=== PATIENT | male | born 1965 | race Caucasian/White ===

== ENCOUNTER 2020-09-06 08:19 | Emergency (ER) | payer OTHER ==
[2020-09-06 08:40] VITALS: BP 121/70; PULSE 62; TEMP 98.2; BMI 23.2
[2020-09-06] MEDS ORDERED: SODIUM CHLORIDE 1,000 ML IV STA ×2 (09:30→10:44)
[2020-09-06] MEDS ORDERED: KETOROLAC TROMETHAMINE 30 MG/1 ML VIAL IVPUSH STA (09:30)
[2020-09-06] MEDS ORDERED: ONDANSETRON 4 MG/2 ML VIAL IVPUSH ONE (09:30)
[2020-09-06] MEDS ORDERED: KETOROLAC TROMETHAMINE 30 MG/1 ML VIAL ONE (09:56)
[2020-09-06] MEDS ORDERED: ONDANSETRON 4 MG/2 ML VIAL ONE (09:57)
[2020-09-06 10:05] LABS: BASO % 0.2 % (0-2.0); HEMOGLOBIN 13.7 GM/dL (11.7-16.9); MCH 29.6 pg (25.7-33.7); MCHC 33.4 g/dl (32.0-35.9); MEAN CELL VOLUME 88.7 fl (80-96); MEAN PLT VOLUME 9.5 fl (7.5-11.1); MONO % 2.5 % (3.8-10.2); NEUT % 94.3 % (42.8-82.8); PLATELET COUNT 225 K/MM3 (134-434); RBC 4.62 M/mm3 (4.00-5.60); RDW 13.1 % (11.9-15.9); WHITE BLOOD COUNT 18.2 K/mm3 (4.0-10.0)
[2020-09-06 10:23] LABS: CALCIUM 9.2 mg/dL (8.5-10.1)
[2020-09-06 10:24] LABS: ALBUMIN 4.5 g/dl (3.4-5.0); MAGNESIUM 1.9 mg/dL (1.8-2.4)
[2020-09-06 10:27] LABS: CREATININE 1.4 mg/dL (0.55-1.3)
[2020-09-06 10:28] LABS: BILIRUBIN,TOTAL 0.6 mg/dL (0.2-1); TOT PROT 7.5 g/dl (6.4-8.2)
[2020-09-06 12:06] LABS: EPI CELLS 5 /uL (0-25.1); HYALINE CASTS 2 /uL (0-3.1); PH,URINE 5.5 (5.0-8.0); URINE APPEARANCE Error; URINE BACTERIA 76 /uL (0-1359); URINE BILIRUBIN NEGATIVE (NEGATIVE); URINE COLOR YELLOW; URINE GLUCOSE (UA) NEGATIVE (NEGATIVE); URINE KETONE 1+ (NEGATIVE); URINE LEUK ESTERASE NEGATIVE (NEGATIVE); URINE NITRITE NEGATIVE (NEGATIVE); URINE PROTEIN 1+ (NEGATIVE); URINE RBC 29 /uL (0-23.9); URINE UROBILINOGEN 0.2 mg/dL (0.2-1.0); URINE WBC 16 /uL (0-25.8)
[2020-09-06 12:39] LABS: ANISOCYTOSIS 0; HELMET CELLS 0; HOWELL-JOLLY BODIES 0; MACROCYTOSIS 0; OVALOCYTE 0; PLATELET ESTIMATE NORMAL; ROULEAU 0; SICKELED CELLS 0; TARGET CELLS 0; TEAR DROP CELLS 0; TOXIC GRANULATION 0
== END 2020-09-06 14:41 | disposition home or self-care (01) ==
LOC: JER 08:19
PROC: 3E0333Z Introduction of Anti-inflammatory into Peripheral Vein, Percutaneous Approach (ICD-10-PCS; principal; 2020-09-06)
PROC: 3E033GC Introduction of Other Therapeutic Substance into Peripheral Vein, Percutaneous Approach (ICD-10-PCS; 2020-09-06)
PROC: 3E0337Z Introduction of Electrolytic and Water Balance Substance into Peripheral Vein, Percutaneous Approach (ICD-10-PCS; 2020-09-06)
PROC: 3E0337Z Introduction of Electrolytic and Water Balance Substance into Peripheral Vein, Percutaneous Approach (ICD-10-PCS; 2020-09-06)
DX: N23 Unspecified renal colic (principal); N39.0 Urinary tract infection, site not specified
CPT/HCPCS: 36415; 74177-TC; 80053; 81003; 83690; 83735; 85025; 87086; 99285-25; Q9967

== ENCOUNTER 2021-02-28 12:22 | Inpatient (IN) | payer OTHER ==
[2021-02-28] MEDS ORDERED: AMIODARONE HCL INJECTION 150 MG in DEXTROSE 5%-WATER - 100 ML IVPB ONE (12:29)
[2021-02-28] MEDS ORDERED: MAGNESIUM SULF 50% (8.12 MEQ/2 ML-1 GM VIAL) IVPB ONE (12:29)
[2021-02-28] MEDS ORDERED: SODIUM CHLORIDE 0.9% 500 ML INFUS.BAG IV ONE ×2 (12:29)
[2021-02-28 12:46] LABS: BASO % 1.4 % (0-2.0); HEMATOCRIT 38.6 % (35.4-49); LYMPH % 16.8 % (8-40); MCH 28.9 pg (25.7-33.7); MCHC 33.7 g/dl (32.0-35.9); MEAN CELL VOLUME 85.5 fl (80-96); MEAN PLT VOLUME 8.9 fl (7.5-11.1); MONO % 7.2 % (3.8-10.2); NEUT % 74.6 % (42.8-82.8); PLATELET COUNT 142 10^3/uL (134-434); RBC 4.51 M/mm3 (4.00-5.60); RDW 13.4 % (11.9-15.9); WHITE BLOOD COUNT 10.4 K/mm3 (4.0-10.0)
[2021-02-28] MEDS ORDERED: ADENOSINE 6 MG/2 ML VIAL IVPUSH ONE ×3 (12:50→13:14)
[2021-02-28] MEDS ORDERED: AMIODARONE HCL 150 MG/3 ML VIAL ONE (12:50)
[2021-02-28 12:53] LABS: INR 1.09 (0.83-1.09); PROTHROMBIN TIME (PATIENT) 13.1 SEC (9.7-13.0)
[2021-02-28 12:56] LABS: ACTIVATED PTT 29.4 SECONDS (25.2-36.5)
[2021-02-28 13:00] LABS: CHLORIDE 97 mmol/L (98-107); SODIUM 132 mmol/L (136-145)
[2021-02-28 13:03] LABS: CALCIUM 8.5 mg/dL (8.5-10.1)
[2021-02-28 13:04] LABS: ALBUMIN 3.6 g/dl (3.4-5.0); ANION GAP 11 MMOL/L (8-16); CO2 24 mmol/L (21-32); GLUCOSE,RANDOM 151 mg/dL (74-106); MAGNESIUM 2.3 mg/dL (1.8-2.4)
[2021-02-28 13:09] LABS: CREATININE 1.7 mg/dL (0.55-1.3); SGOT/AST 33 U/L (15-37); SGPT/ALT 36 U/L (13-61); TOT PROT 6.6 g/dl (6.4-8.2)
[2021-02-28 13:10] LABS: ALK PHOS 75 U/L (45-117); BLOOD UREA NITROGEN 25.1 mg/dL (7-18)
[2021-02-28] MEDS ORDERED: dilTIAZem HCL 125 MG/25 ML - 25 ML VIAL ONE (13:12)
[2021-02-28] MEDS ORDERED: LACTATED RINGERS SOLUTION 1000 ML INFUS.BAG IV ONE (13:14)
[2021-02-28] MEDS ORDERED: dilTIAZem HCL 50 MG/10 ML - 10 ML VIAL IVPUSH ONE ×2 (13:14→13:29)
[2021-02-28] MEDS ORDERED: AMIODARONE HCL INJECTION 450 MG in DEXTROSE 5%-WATER - 241 ML IVPB ONE (13:19)
[2021-02-28] MEDS ORDERED: DEXTROSE 5% IVPB ONE ×2 (13:28→13:43)
[2021-02-28] MEDS ORDERED: AMIODARONE IN DEXTROSE,ISO-OSM 360 MG/200 ML BAG ONE (13:28)
[2021-02-28] MEDS ORDERED: AMIODARONE HCL IVPB ONE ×2 (13:28→13:43)
[2021-02-28] MEDS ORDERED: WATER IVPB ONE ×2 (13:28→13:43)
[2021-02-28] MEDS ORDERED: DILTIAZEM INJECTION 125 MG in SODIUM CHLORIDE 100 ML IVPB SCH (13:30)
[2021-02-28] MEDS ORDERED: AMIODARONE IN DEXTROSE,ISO-OSM 360 MG/200 ML BAG IVPB ONE (13:48)
[2021-02-28 14:33] LABS: CHOLESTEROL 141 mg/dL (50-200); TRIGLYCERIDES 121 mg/dL (0-150)
[2021-02-28 14:37] LABS: HDL CHOLESTEROL 25 mg/dL (40-60)
[2021-02-28 14:44] LABS: LDL CHOLESTEROL (ONLY SJRH) 83 mg/dL (5-100)
[2021-02-28] MEDS ORDERED: METOPROLOL TARTRATE 25 MG TABLET (FP) ONE (16:47)
[2021-02-28] MEDS: metoPROLOL SUCCINATE 25 MG TAB.SR.24H (FP) PO SCH (16:50)
[2021-02-28 17:54] LABS: LACTIC ACID 2.4 mmol/L (0.4-2.0)
[2021-02-28] MEDS ORDERED: SODIUM CHLORIDE 1,000 ML IV STA (18:50)
[2021-02-28 20:39] VITALS: BMI 25.2
[2021-02-28] MEDS: HEPARIN NA (PORCINE) 5,000 UNITS/ML 1ML VIAL SQ SCH (21:47)
[2021-02-28] MEDS: SODIUM CHLORIDE 1,000 ML IV SCH (21:47)
[2021-03-01 00:11] LABS: SODIUM 134 mmol/L (136-145)
[2021-03-01 00:13] LABS: MAGNESIUM 2.3 mg/dL (1.8-2.4)
[2021-03-01 00:17] LABS: PHOSPHOROUS 2.1 mg/dL (2.5-4.9)
[2021-03-01] MEDS: ACETAMINOPHEN 325 MG TABLET (FP) PO PRN ×2 (03:42→21:54)
[2021-03-01] MEDS: HEPARIN NA (PORCINE) 5,000 UNITS/ML 1ML VIAL SQ SCH ×3 (05:26→21:53)
[2021-03-01 07:28] LABS: MCH 28.2 pg (25.7-33.7); MCHC 32.5 g/dl (32.0-35.9); MEAN CELL VOLUME 86.9 fl (80-96); MEAN PLT VOLUME 9.4 fl (7.5-11.1); PLATELET COUNT 115 10^3/uL (134-434); RBC 4.26 M/mm3 (4.00-5.60); RDW 13.2 % (11.9-15.9); WHITE BLOOD COUNT 9.9 K/mm3 (4.0-10.0)
[2021-03-01 07:42] LABS: CHLORIDE 103 mmol/L (98-107); SODIUM 136 mmol/L (136-145)
[2021-03-01 07:50] LABS: ANION GAP 8 MMOL/L (8-16); BLOOD UREA NITROGEN 18.4 mg/dL (7-18); CO2 25 mmol/L (21-32)
[2021-03-01 07:51] LABS: MAGNESIUM 2.3 mg/dL (1.8-2.4)
[2021-03-01 07:53] LABS: CREATININE 1.1 mg/dL (0.55-1.3); PHOSPHOROUS 2.7 mg/dL (2.5-4.9); SGOT/AST 46 U/L (15-37); SGPT/ALT 33 U/L (13-61); TOT PROT 5.5 g/dl (6.4-8.2)
[2021-03-01 07:54] LABS: ALK PHOS 60 U/L (45-117)
[2021-03-01 07:57] LABS: BILIRUBIN,TOTAL 0.9 mg/dL (0.2-1)
[2021-03-01 07:58] LABS: N-TERMINAL BNP 2813.5 pg/ml (5-125)
[2021-03-01 08:46] LABS: ALBUMIN 2.8 g/dl (3.4-5.0); CALCIUM 7.1 mg/dL (8.5-10.1); GLUCOSE,RANDOM 84 mg/dL (74-106)
[2021-03-01] MEDS: metoPROLOL SUCCINATE 25 MG TAB.SR.24H (FP) PO SCH (10:24)
[2021-03-01 13:54] LABS: ANISOCYTOSIS 1+; MACROCYTOSIS 0; PLATELET ESTIMATE DECREASED
[2021-03-01] MEDS ORDERED: CEFTRIAXONE 1 GM in DEXTROSE 5%-WATER - 50 ML IVPB SCH (17:00)
[2021-03-01] MEDS ORDERED: cefTRIAXone SODIUM 1 GM VIAL ONE (17:13)
[2021-03-01] MEDS ORDERED: DEXTROSE 5%-WATER - 50 ML IVPB ONE (17:13)
[2021-03-01] MEDS: SODIUM CHLORIDE 1,000 ML IV SCH (21:54)
[2021-03-02 06:12] LABS: EPI CELLS 3 /uL (0-25.1); HYALINE CASTS 0 /uL (0-3.1); PH,URINE 5.5 (5.0-8.0); URINE APPEARANCE CLEAR; URINE BACTERIA 4 /uL (0-1359); URINE BILIRUBIN NEGATIVE (NEGATIVE); URINE COLOR YELLOW; URINE GLUCOSE (UA) NEGATIVE (NEGATIVE); URINE KETONE NEGATIVE (NEGATIVE); URINE LEUK ESTERASE NEGATIVE (NEGATIVE); URINE NITRITE NEGATIVE (NEGATIVE); URINE PROTEIN 1+ (NEGATIVE); URINE RBC 33 /uL (0-23.9); URINE WBC 7 /uL (0-25.8)
[2021-03-02] MEDS: HEPARIN NA (PORCINE) 5,000 UNITS/ML 1ML VIAL SQ SCH ×3 (06:30→21:12)
[2021-03-02] MEDS: ACETAMINOPHEN 325 MG TABLET (FP) PO PRN ×2 (06:44→15:18)
[2021-03-02 06:57] LABS: EOS % 0.2 % (0-4.5); HEMATOCRIT 34.4 % (35.4-49); HEMOGLOBIN 11.5 GM/dL (11.7-16.9); LYMPH % 21.5 % (8-40); MCH 28.6 pg (25.7-33.7); MCHC 33.5 g/dl (32.0-35.9); MEAN CELL VOLUME 85.3 fl (80-96); MEAN PLT VOLUME 9.2 fl (7.5-11.1); MONO % 9.7 % (3.8-10.2); NEUT % 67.6 % (42.8-82.8); PLATELET COUNT 122 10^3/uL (134-434); RBC 4.04 M/mm3 (4.00-5.60); RDW 13.3 % (11.9-15.9); WHITE BLOOD COUNT 8.4 K/mm3 (4.0-10.0)
[2021-03-02 07:21] LABS: ALBUMIN 2.6 g/dl (3.4-5.0); BLOOD UREA NITROGEN 13.1 mg/dL (7-18); MAGNESIUM 2.1 mg/dL (1.8-2.4)
[2021-03-02 07:25] LABS: PHOSPHOROUS 1.4 mg/dL (2.5-4.9)
[2021-03-02 07:26] LABS: BILIRUBIN,TOTAL 0.9 mg/dL (0.2-1); TOT PROT 5.2 g/dl (6.4-8.2)
[2021-03-02 07:28] LABS: CREATININE 0.7 mg/dL (0.55-1.3)
[2021-03-02] MEDS ORDERED: DEXTROSE 5%-WATER - 50 ML IVPB ONE (09:22)
[2021-03-02] MEDS ORDERED: cefTRIAXone SODIUM 1 GM VIAL ONE (09:22)
[2021-03-02] MEDS: NAPH,MB-DB/K PH,MBDB POWDER PACKET PO SCH ×3 (09:38→21:12)
[2021-03-02] MEDS: metoPROLOL SUCCINATE 25 MG TAB.SR.24H (FP) PO SCH (09:38)
[2021-03-02] MEDS: CEFTRIAXONE 1 GM in DEXTROSE 5%-WATER - 50 ML IVPB SCH (09:38)
[2021-03-02] MEDS: ASPIRIN 81 MG CHEWABLE TABLETS PO SCH (10:05)
[2021-03-02] MEDS ORDERED: FUROSEMIDE 40 MG/4 ML INJECTABLE VIAL IVPUSH ONE ×2 (11:30)
[2021-03-02] MEDS ORDERED: DOXYCYCLINE HYCLATE 100 MG VIAL ONE ×2 (12:18→20:29)
[2021-03-02] MEDS ORDERED: DEXTROSE 5%-WATER 100 ML IVPB ONE ×2 (12:19→20:29)
[2021-03-02] MEDS: DOXYCYCLINE INJECTION 100 MG in DEXTROSE 5%-WATER 100 ML IVPB SCH ×2 (12:23→21:12)
[2021-03-02 15:49] LABS: HIV INTERPRETATION PRESUMPTIVE POSITIVE (NEGATIVE)
[2021-03-03] MEDS: HEPARIN NA (PORCINE) 5,000 UNITS/ML 1ML VIAL SQ SCH ×3 (05:32→21:18)
[2021-03-03] MEDS: NAPH,MB-DB/K PH,MBDB POWDER PACKET PO SCH ×3 (05:32→21:18)
[2021-03-03 07:58] LABS: BASO % 0.7 % (0-2.0); HEMATOCRIT 41.8 % (35.4-49); HEMOGLOBIN 13.6 GM/dL (11.7-16.9); LYMPH % 45.8 % (8-40); MCH 28.2 pg (25.7-33.7); MCHC 32.6 g/dl (32.0-35.9); MEAN CELL VOLUME 86.5 fl (80-96); MEAN PLT VOLUME 9.1 fl (7.5-11.1); MONO % 10.6 % (3.8-10.2); NEUT % 40.9 % (42.8-82.8); PLATELET COUNT 163 10^3/uL (134-434); RBC 4.83 M/mm3 (4.00-5.60); RDW 13.6 % (11.9-15.9); WHITE BLOOD COUNT 7.1 K/mm3 (4.0-10.0)
[2021-03-03 08:01] LABS: BLOOD UREA NITROGEN 8.6 mg/dL (7-18); MAGNESIUM 2.3 mg/dL (1.8-2.4)
[2021-03-03 08:03] LABS: PHOSPHOROUS 2.6 mg/dL (2.5-4.9)
[2021-03-03 08:04] LABS: CREATININE 0.8 mg/dL (0.55-1.3)
[2021-03-03 08:05] LABS: BILIRUBIN,TOTAL 0.8 mg/dL (0.2-1); TOT PROT 6.6 g/dl (6.4-8.2)
[2021-03-03 08:40] LABS: ALBUMIN 3.2 g/dl (3.4-5.0); CALCIUM 8.1 mg/dL (8.5-10.1)
[2021-03-03 09:32] LABS: ANISOCYTOSIS 1+; PLATELET ESTIMATE NORMAL
[2021-03-03] MEDS ORDERED: DOXYCYCLINE HYCLATE 100 MG VIAL ONE ×2 (09:37→21:13)
[2021-03-03] MEDS ORDERED: cefTRIAXone SODIUM 1 GM VIAL ONE (09:38)
[2021-03-03] MEDS: ASPIRIN 81 MG CHEWABLE TABLETS PO SCH (09:50)
[2021-03-03] MEDS: DOXYCYCLINE INJECTION 100 MG in DEXTROSE 5%-WATER 100 ML IVPB SCH ×2 (09:50→21:18)
[2021-03-03] MEDS: metoPROLOL SUCCINATE 25 MG TAB.SR.24H (FP) PO SCH (09:50)
[2021-03-03] MEDS: CEFTRIAXONE 1 GM in DEXTROSE 5%-WATER - 50 ML IVPB SCH (09:51)
[2021-03-03] MEDS ORDERED: FUROSEMIDE 40 MG/4 ML INJECTABLE VIAL IVPUSH ONE (10:01)
[2021-03-03 16:10] LABS: MYCOPLASMA PNEUMONIAE,IG G AB 124 U/mL (0-99); MYCOPLASMA PNEUMONIAE,IGM AB <770 U/mL (0-769)
[2021-03-03] MEDS ORDERED: DEXTROSE 5%-WATER 100 ML IVPB ONE (21:13)
[2021-03-04] MEDS: NAPH,MB-DB/K PH,MBDB POWDER PACKET PO SCH ×2 (05:16→15:19)
[2021-03-04] MEDS: HEPARIN NA (PORCINE) 5,000 UNITS/ML 1ML VIAL SQ SCH ×2 (05:16→15:19)
[2021-03-04 08:14] LABS: BASO % 1.8 % (0-2.0); EOS % 1.2 % (0-4.5); HEMATOCRIT 37.6 % (35.4-49); HEMOGLOBIN 12.6 GM/dL (11.7-16.9); LYMPH % 39.2 % (8-40); MCH 28.4 pg (25.7-33.7); MCHC 33.6 g/dl (32.0-35.9); MEAN CELL VOLUME 84.5 fl (80-96); MONO % 6.2 % (3.8-10.2); NEUT % 51.6 % (42.8-82.8); PLATELET COUNT 189 10^3/uL (134-434); RBC 4.44 M/mm3 (4.00-5.60); RDW 13.6 % (11.9-15.9); WHITE BLOOD COUNT 9.9 K/mm3 (4.0-10.0)
[2021-03-04 08:39] LABS: BLOOD UREA NITROGEN 7.9 mg/dL (7-18); CALCIUM 7.8 mg/dL (8.5-10.1); MAGNESIUM 2.1 mg/dL (1.8-2.4)
[2021-03-04 08:41] LABS: CREATININE 0.7 mg/dL (0.55-1.3); PHOSPHOROUS 3.2 mg/dL (2.5-4.9)
[2021-03-04 08:42] LABS: ALBUMIN 2.8 g/dl (3.4-5.0)
[2021-03-04 08:43] LABS: BILIRUBIN,TOTAL 0.4 mg/dL (0.2-1)
[2021-03-04] MEDS ORDERED: DEXTROSE 5%-WATER - 50 ML IVPB ONE (09:37)
[2021-03-04] MEDS ORDERED: DEXTROSE 5%-WATER 100 ML IVPB ONE (09:37)
[2021-03-04] MEDS ORDERED: cefTRIAXone SODIUM 1 GM VIAL ONE (09:37)
[2021-03-04] MEDS ORDERED: DOXYCYCLINE HYCLATE 100 MG VIAL ONE (09:37)
[2021-03-04] MEDS: CEFTRIAXONE 1 GM in DEXTROSE 5%-WATER - 50 ML IVPB SCH (10:00)
[2021-03-04] MEDS: DOXYCYCLINE INJECTION 100 MG in DEXTROSE 5%-WATER 100 ML IVPB SCH (10:00)
[2021-03-04] MEDS: metoPROLOL SUCCINATE 25 MG TAB.SR.24H (FP) PO SCH (10:01)
[2021-03-04] MEDS: ASPIRIN 81 MG CHEWABLE TABLETS PO SCH (10:01)
[2021-03-04 14:48] VITALS: BP 134/80; PULSE 77; TEMP 97.8
== END 2021-03-04 15:27 | disposition home or self-care (01) | DRG 201 ==
LOC: JER 12:22 → JERBED 14:58 → J4W 18:35
PROVIDERS: ATTEND Internal Medicine
DX: I47.1 Supraventricular tachycardia (principal); I21.A1 Myocardial infarction type 2; J96.01 Acute respiratory failure with hypoxia; I50.31 Acute diastolic (congestive) heart failure; D69.6 Thrombocytopenia, unspecified; N17.9 Acute kidney failure, unspecified; E86.0 Dehydration; E87.5 Hyperkalemia; B34.9 Viral infection, unspecified; I45.4 Nonspecific intraventricular block; E87.1 Hypo-osmolality and hyponatremia; E83.39 Other disorders of phosphorus metabolism
CPT/HCPCS: 36415; 71045-TC-FY; 71250-TC; 80048; 80053; 80061; 81003; 82550; 82553; 83036; 83605; 83615; 83721; 83735; 83880; 84100; 84132; 84295; 84443; 84484; 85025; 85027; 85610; 85730; 86359; 86360; 86603; 86738; 86769; 86850; 86900; 86901; 87040; 87045; 87046; 87086; 87205; 87324; 87389; 87425; 87449; 87798; 87804; 87899; 93005; 93010; 93306-TC; 99291; C9803; J1644; U0003; U0005

== ENCOUNTER 2024-06-17 07:19 | Emergency (ER) | payer OTHER ==
[2024-06-17 07:28] VITALS: BP 142/96; PULSE 78; RESP 18; TEMP 97.6; BMI 24.3
[2024-06-17] MEDS ORDERED: DIPHTH,PERTUSS(ACELL),TET 0.5 ML DISP.SYRIN IM ONE (08:08)
[2024-06-17] MEDS ORDERED: IBUPROFEN 600 MG TABLET (FP) PO ONE (08:08)
[2024-06-17] MEDS: DIPHTH,PERTUSS(ACELL),TET 0.5 ML DISP.SYRIN IM ONE (08:13)
[2024-06-17] MEDS: IBUPROFEN 600 MG TABLET (FP) PO ONE (08:14)
[2024-06-17] MEDS ORDERED: BACITRACIN ZINC 15 GM TUBE TOPICAL OINTMENT ONE (08:17)
[2024-06-17] MEDS: BACITRACIN ZINC 15 GM TUBE TOPICAL OINTMENT TP ONE (08:40)
== END 2024-06-17 09:12 | disposition home or self-care (01) ==
LOC: JERFT 07:19 → JER 07:19 → JERFT 09:12
PROC: 3E0234Z Introduction of Serum, Toxoid and Vaccine into Muscle, Percutaneous Approach (ICD-10-PCS; principal; 2024-06-17)
DX: S80.811A Abrasion, right lower leg, initial encounter (principal); S80.812A Abrasion, left lower leg, initial encounter; M25.562 Pain in left knee; W01.0XXA Fall on same level from slipping, tripping and stumbling without subsequent striking against object, initial encounter; Y93.01 Activity, walking, marching and hiking; Z23 Encounter for immunization
CPT/HCPCS: 73560-TC-RT-FY; 73590-TC-LT-FY; 90471; 90715; 99284-25